=== PATIENT | male | born 1960 | race Caucasian/White ===

== ENCOUNTER 2016-09-18 17:41 | Emergency (ER) | payer MEDICARE, MEDICAID ==
[2015-03-07 14:48] VITALS: BMI 32.6
[~2016-09-18 17:41] MED LIST: ACETAMINOPHEN325 MG PO; ARTANE2 MG PO; ASPIRIN325 MG PO; BENICAR20 MG PO; CARAFATE1 G/10 ML PO; CATAPRES0.1 MG PO; CELEXA10 MG PO; CELEXA20 MG PO; DEPAKOTE ER250 MG PO; DEPAKOTE SPRIN125 MG PO; DEPAKOTE500 MG PO; DILANTIN100 MG PO; DIOVAN80 MG PO; FEXOFENADINE HC60 MG PO; HCTZ25 MG PO; HYDROCODON-ACE1 EAC7 PO; LAMICTAL100 MG PO; PLAVIX75 MG PO; PRAVACHOL20 MG PO; PROTONIX40 MG PO; TOPAMAX100 MG PO; ZOFRAN ODT4 MG/UDTAB PO
[2016-09-18 19:30] LABS: UDS - AMPHET NEGATIVE QUAL (NEGATIVE); UDS - BARB POSITIVE QUAL (NEGATIVE); UDS - BENZO NEGATIVE QUAL (NEGATIVE); UDS - COCAINE NEGATIVE QUAL (NEGATIVE); UDS - METH NEGATIVE QUAL (NEGATIVE); UDS - OPIATE POSITIVE QUAL (NEGATIVE); UDS - PCP NEGATIVE QUAL (NEGATIVE); UDS - THC POSITIVE QUAL (NEGATIVE)
[2016-09-18 19:41] LABS: APPEARANCE CLEAR (CLEAR); COLOR DK YELLOW (YELLOW)
[2016-09-18 19:42] LABS: LEUKOCYTE ESTERASE TRACE (NEGATIVE); NITRITE NEGATIVE (NEGATIVE); SPECIFIC GRAVITY 1.015 (1.005-1.020)
[2016-09-18 19:43] LABS: BILIRUBIN NEGATIVE (NEGATIVE); GLUCOSE NEGATIVE (NEGATIVE); KETONE NEGATIVE (NEGATIVE); PROTEIN 1+ mg/dL (NEGATIVE)
[2016-09-18 19:45] LABS: EPITHELIAL CELLS 0-5 /hpf (0-5); RED CELLS - URINE 0-5 /hpf (0-5); WHITE CELLS - URINE 0-5 /hpf (0-5)
[2016-09-18 19:46] LABS: BACTERIA FEW /hpf (NONE SEEN)
[2016-09-18 19:47] LABS: BASOPHILS 0.3 % (0-2); HEMATOCRIT 40.2 % (42.0-54.0); HEMOGLOBIN 13.7 g/dL (13.5-17.5); IMMATURE GRANULOCYTES 0.3 % (0-5); LYMPHOCYTES 18.2 % (15-50); MCH 31.6 pg (26.0-34.0); MCHC 34.1 g/dL (31.0-37.0); MCV 92.6 fL (80.0-100.0); MEAN PLATELET VOLUME 9.3 fL (7.4-10.4); NEUTROPHILS 69.2 % (40-80); RBC 4.34 10x6/uL (4.20-6.10); RDW 12.6 % (11.5-14.5)
[2016-09-18 19:48] LABS: PLATELET COUNT 177 10x3/uL (130-400)
[2016-09-18 20:03] LABS: ALBUMIN 3.4 g/dL (3.4-5.0); ANION GAP 13.9 mmol/L (8-16); BILIRUBIN - TOTAL 0.32 mg/dL (0.2-1.3); CALCIUM 8.7 mg/dL (8.5-10.1); CARBON DIOXIDE 22.9 mmol/L (21.0-32.0); CREATININE - SERUM 1.1 mg/dL (0.6-1.3); POTASSIUM - SERUM 3.8 mmol/L (3.5-5.1); PROTEIN - SERUM 6.9 g/dL (6.4-8.2); VALPROIC ACID (DEPAKOTE) 77.3 ug/mL (50.0-100.0)
== END 2016-09-18 20:22 | disposition home or self-care (01) ==
LOC: D.ER 17:41
PROVIDERS: Nurse Practitioner Acute Care
DX: Z91.81 History of falling (principal); R25.1 Tremor, unspecified; Z86.73 Personal history of transient ischemic attack (TIA), and cerebral infarction without residual deficits; I10 Essential (primary) hypertension; G40.909 Epilepsy, unspecified, not intractable, without status epilepticus

== ENCOUNTER 2016-10-13 15:22 | Emergency (ER) | payer MEDICARE, MEDICAID ==
[2015-03-07 14:48] VITALS: BMI 32.6
[2016-10-13 16:47] LABS: UDS - AMPHET NEGATIVE QUAL (NEGATIVE); UDS - BARB POSITIVE QUAL (NEGATIVE); UDS - BENZO NEGATIVE QUAL (NEGATIVE); UDS - COCAINE NEGATIVE QUAL (NEGATIVE); UDS - METH NEGATIVE QUAL (NEGATIVE); UDS - OPIATE POSITIVE QUAL (NEGATIVE); UDS - PCP NEGATIVE QUAL (NEGATIVE); UDS - THC NEGATIVE QUAL (NEGATIVE)
[2016-10-13 16:54] LABS: BASOPHILS 0.3 % (0-2); EOSINOPHILS 1.9 % (0-7); HEMATOCRIT 37.8 % (42.0-54.0); HEMOGLOBIN 12.7 g/dL (13.5-17.5); IMMATURE GRANULOCYTES 0.3 % (0-5); LYMPHOCYTES 13.1 % (15-50); MCH 31.3 pg (26.0-34.0); MCHC 33.6 g/dL (31.0-37.0); MCV 93.1 fL (80.0-100.0); MEAN PLATELET VOLUME 8.6 fL (7.4-10.4); MONOCYTES 9.8 % (2-11); NEUTROPHILS 74.6 % (40-80); PLATELET COUNT 201 10x3/uL (130-400); RBC 4.06 10x6/uL (4.20-6.10); RDW 12.8 % (11.5-14.5); WBC 6.4 10x3/uL (4.8-10.8)
[2016-10-13 17:38] LABS: ALBUMIN 3.2 g/dL (3.4-5.0); ALKALINE PHOSPHATASE 103 U/L (46-116); ALT (SGPT) 14 U/L (10-68); BILIRUBIN - TOTAL 0.33 mg/dL (0.2-1.3); CALC OSMOLALITY 277 mosm/kg (275-300); CALCIUM 8.3 mg/dL (8.5-10.1); CARBON DIOXIDE 22.4 mmol/L (21.0-32.0); CHLORIDE - SERUM 105 mmol/L (98-107); CREATININE - SERUM 0.9 mg/dL (0.6-1.3); GLUCOSE 122 mg/dL (74-106); POTASSIUM - SERUM 3.5 mmol/L (3.5-5.1); PROTEIN - SERUM 6.2 g/dL (6.4-8.2); SODIUM 139 mmol/L (136-145); UREA NITROGEN 11 mg/dL (7-18); VALPROIC ACID (DEPAKOTE) 72.6 ug/mL (50.0-100.0); eGFR NON AFRICAN AMERICAN > 90 mL/min (90-120)
[2016-10-13 18:27] LABS: APTT 25.3 SECONDS (22.8-39.4); INR 1.07 (0.85-1.17); PROTIME 13.8 SECONDS (11.6-15.0)
[2016-10-13 21:28] LABS: APPEARANCE CLEAR (CLEAR); BILIRUBIN NEGATIVE (NEGATIVE); COLOR DK YELLOW (YELLOW); GLUCOSE NEGATIVE (NEGATIVE); KETONE NEGATIVE (NEGATIVE); LEUKOCYTE ESTERASE NEGATIVE (NEGATIVE); NITRITE NEGATIVE (NEGATIVE); PROTEIN NEGATIVE (NEGATIVE); SPECIFIC GRAVITY 1.015 (1.005-1.020); UROBILINOGEN NORMAL (NORMAL)
== END 2016-10-13 20:42 | disposition other institution (70) ==
LOC: D.ER 15:22
PROVIDERS: Family Medicine; Physician Assistant
DX: S06.5X0A Traumatic subdural hemorrhage without loss of consciousness, initial encounter (principal); W19.XXXA Unspecified fall, initial encounter; Y93.89 Activity, other specified; Y92.89 Other specified places as the place of occurrence of the external cause; G40.909 Epilepsy, unspecified, not intractable, without status epilepticus; R41.0 Disorientation, unspecified; I10 Essential (primary) hypertension; R41.3 Other amnesia; R42 Dizziness and giddiness; Z87.820 Personal history of traumatic brain injury

== ENCOUNTER 2016-12-06 07:17 | Observation (INO) | payer MEDICARE, MEDICAID ==
[2016-12-06 08:02] LABS: BASOPHILS 0.2 % (0-2); EOSINOPHILS 4.6 % (0-7); HEMATOCRIT 37.6 % (42.0-54.0); HEMOGLOBIN 12.4 g/dL (13.5-17.5); IMMATURE GRANULOCYTES 0.2 % (0-5); MCH 30.5 pg (26.0-34.0); MCV 92.4 fL (80.0-100.0); MEAN PLATELET VOLUME 8.9 fL (7.4-10.4); MONOCYTES 8.4 % (2-11); NEUTROPHILS 70.6 % (40-80); RBC 4.07 10x6/uL (4.20-6.10); RDW 13.1 % (11.5-14.5); WBC 4.8 10x3/uL (4.8-10.8)
[2016-12-06 08:03] LABS: PLATELET COUNT 133 10x3/uL (130-400)
[2016-12-06 08:16] LABS: ALBUMIN 3.5 g/dL (3.4-5.0); ANION GAP 14.8 mmol/L (8-16); BILIRUBIN - TOTAL 0.31 mg/dL (0.2-1.3); CALCIUM 9.1 mg/dL (8.5-10.1); CARBON DIOXIDE 25.1 mmol/L (21.0-32.0); CREATININE - SERUM 1.1 mg/dL (0.6-1.3); POTASSIUM - SERUM 3.9 mmol/L (3.5-5.1); PROTEIN - SERUM 6.7 g/dL (6.4-8.2); VALPROIC ACID (DEPAKOTE) 87.1 ug/mL (50.0-100.0)
--- NOTE | 2016-12-06 12:52 | NUR ---
REPORT RECEIVED FROM NICOLA HENDERSON, ER NURSE.
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
[2016-12-06 13:59] VITALS: BMI 29.3
[2016-12-06] MEDS ORDERED: SEROQUEL25 MG PO (14:11)
[2016-12-06] MEDS ORDERED: ATIVAN0.5 MG PO (14:12)
[2016-12-06] MEDS ORDERED: PEPCID20 MG PO (14:13)
[2016-12-06] MEDS ORDERED: LAMICTAL200 MG PO (14:15)
[2016-12-06] MEDS ORDERED: LOPRESSOR25 MG PO (14:15)
[2016-12-06] MEDS ORDERED: BUMEX2 MG PO (14:16)
[2016-12-06] MEDS ORDERED: K-TAB10 MEQ PO (14:17)
[2016-12-06] MEDS ORDERED: DEPAKOTE250 MG PO (14:19)
[2016-12-06] MEDS ORDERED: TOPAMAX100 MG PO (14:20)
[2016-12-06] MEDS ORDERED: ACETAMINOPHEN325 MG PO (14:22)
[2016-12-06] MEDS ORDERED: IMODIUM 22 MG/10 ML PO (14:29)
[2016-12-06] MEDS ORDERED: ALOE VESTA141 GM TP (14:30)
[2016-12-06] MEDS ORDERED: BACTROBAN CREAM15 GM TOPICAL (14:31)
--- NOTE | 2016-12-06 15:50 | NUR ---
CALLED [facility] AND SPOKE WITH ODETTE MARIN WHO WAS TAKING CARE OF PT AT [facility]. ASKED HIM WHAT KIND OF DIET PT WAS ON AND IT THEY WERE USING PEG TUBE FOR ANYTHING. ODETTE STATED THAT PT WAS ON A REGULAR DIET, AND THAT THE PEG TUBE WAS NOT BEING USED, THAT IT WAS ONLY BEING FLUSHED EVERY SHIFT.
[2016-12-06 16:24] VITALS: BP 119/86
[2016-12-06 20:00] VITALS: BP 104/70
--- NOTE | 2016-12-06 22:23 | NUR ---
INIITAL ROUNDS COMPLETED AT 1920 HRS. PT RESTING WITH EYES CLOSED. RESP EVEN AND REGULAR. ASSESSMENT COMPELTEDA T 2010 HRS. VSS. TREMORS NOTED TO BILAT ARMS. PT ALERT, ORIENTED TO PERSON ONLY. IV TO L HAND WITH NS AT 75CC/HR. IV PATENT. PEG TUBE NOTED. LUNGS DIMINISHED IN BASES BILAT. PT FOLLOWS COMMANDS. EQAL HAND AND FOOT STRENGHT. DR MAHMOOD HERE TO EVAL AT 0 HRS. BED ALARM ON. [facility] CALL[facility]A T 2150 HRS TO VERIFY MEDS. MEDS DISCUSSED WIT WIRE BRUSH OPERATOR ON DUTY. DR MAHMOOD PAGED AT 2210 HRS TO INFORM OF DIFFERENCE FROM LOIST HERE AND AT [facility]. AWAITING CALL BACK. WILL CONTINUE TO MONITOR. SR UP X2, CALL LIGHT WITHIN REACH AND BED ALARM ON.
--- NOTE | 2016-12-06 22:44 | NUR ---
DR. MAHMOOD RETURNED PAGE. INFORMED OF DIFERENCE FROM MED LIST HERE AND FROM [facility] AND LIST RECTIFIED. DR MAHMOOD STATED OK.
[2016-12-07] VITALS: BP 102/63
--- NOTE | 2016-12-07 00:03 | NUR ---
PM MEDS GIVEN WITHOUT DIFFICULTY. WILL CONTINUE TO MONITOR.
--- NOTE | 2016-12-07 00:59 | NUR ---
PT RESTING WITH EYES CLOSED. RESP EVEN AND REGULAR. SR UP X2, CALL LIGHT WITHIN REACH AND BED ALARM ON.
--- NOTE | 2016-12-07 02:00 | NUR ---
PT RESTING WITH EYES CLOSED. RESP DEEP, EVEN AND REGULAR. SR UP X2, CALL LIGHT WITHIN REACH AND BED ALARM ON.
[2016-12-07 04:00] VITALS: BP 90/66
--- NOTE | 2016-12-07 05:02 | NUR ---
PT RESTING WITH EYES CLOSED. RESP EVEN AND REGULAR. PT CLEAN AND DRY AT THIS TIME. WILL CONTINUE TO MONITOR. SR UP X2, CALL LIGHT WITHIN REACH AND BED ALARM ON.
--- NOTE | 2016-12-07 05:56 | NUR ---
VSS THROUGHOUT NIGHT. PT SLEPT WELL SINCE PM MED ADMINISTRATION. NEEDS MET, WILL CONTINUE TO MONITOR.
[2016-12-07 06:43] LABS: BASOPHILS 0.3 % (0-2); EOSINOPHILS 7.8 % (0-7); HEMOGLOBIN 10.7 g/dL (13.5-17.5); IMMATURE GRANULOCYTES 0.6 % (0-5); LYMPHOCYTES 29.4 % (15-50); MCH 30.1 pg (26.0-34.0); MCHC 32.4 g/dL (31.0-37.0); MEAN PLATELET VOLUME 8.8 fL (7.4-10.4); MONOCYTES 10.2 % (2-11); NEUTROPHILS 51.7 % (40-80); PLATELET COUNT 114 10x3/uL (130-400); RBC 3.55 10x6/uL (4.20-6.10); RDW 12.9 % (11.5-14.5)
[2016-12-07 06:46] LABS: WBC 3.4 10x3/uL (4.8-10.8)
[2016-12-07 06:50] LABS: CALC OSMOLALITY 284 mosm/kg (275-300); CALCIUM 8.6 mg/dL (8.5-10.1); CARBON DIOXIDE 23.4 mmol/L (21.0-32.0); CHLORIDE - SERUM 107 mmol/L (98-107); GLUCOSE 85 mg/dL (74-106); POTASSIUM - SERUM 3.8 mmol/L (3.5-5.1); SODIUM 142 mmol/L (136-145); UREA NITROGEN 21 mg/dL (7-18); eGFR NON AFRICAN AMERICAN 82 mL/min (90-120)
--- NOTE | 2016-12-07 07:40 | NUR ---
RECIEVED REPORT ON PATIENT, PATIENT IS RESTING AT THIS TIME, NAD NOTED. AROUSES TO VOICE. PATIENT BED IS LOW AND LOCKED CALL LIGHT IN REACH. PATIENT DENIES ANY NEEDS AT THIS TIME.PATIENT HAS A L HAND IV WITH NS INFUSING AT 75ML/HR. CPOC.
[2016-12-07 08:00] VITALS: BP 121/80
--- NOTE | 2016-12-07 10:00 | NUR ---
PATIENT IS TEARFUL, WANTING TO SPEAK WITH HIS , TRIED TO CALL HIS MARIELOS WITH NUMBER ON CHART, STATES PHONE IS DISCONNECTED, TRIED DAUGHTERS NUMBER ON PATIENT CHART, STATES DISCONNECTED. CALLED AND SPOKE WITH ALYX AT [facility], TO SEE IF THEY HAD A NUMBER I COULD TRY AND THEY HAD THE SSAME NUMBER AND STATED THEY HAVE NOT BEEN ABLE TO GET AHOLD OF FAMILY EITHER. PATIENT NOTIFIED, ASKED IF HE KNEW ANY OTHER NUMBER AND HE STATED NO. [facility] IS SUPPOSE TO TRY TO FIND ANOTHER NUMBER. CPOC
[2016-12-07 11:00] VITALS: BP 126/83
--- NOTE | 2016-12-07 11:53 | NUR ---
PATIENT SITTING UP IN BED EATING LUNCH, DENIES ANY NEEDS. CPOC
[2016-12-07] MEDS ORDERED: PLAVIX75 MG PO (12:24)
[2016-12-07] MEDS ORDERED: CELEXA20 MG PO (12:26)
[2016-12-07] MEDS ORDERED: DEPAKOTE500 MG PO (12:27)
[2016-12-07] MEDS ORDERED: DEPAKOTE SPRIN125 MG PO (12:27)
[2016-12-07] MEDS ORDERED: ARTANE2 MG PO (12:28)
--- NOTE | 2016-12-07 14:00 | NUR ---
REPORT GIVEN TO BOO AT [facility]. DENIES ANY QUESTIONS. WILL GET PATIENT READY FOR TRANSPORT
--- NOTE | 2016-12-07 14:17 | NUR ---
Patient admitted from [facility]. He is discharged to return to facility today. CM spoke with facility, [facility], who stated patient will be returning to a skilled bed. The primary nurse has given report. Transportation will be via [facility]. Chart copy prepared for discharge. PCS form completed.
--- NOTE | 2016-12-07 15:01 | NUR ---
EMS HERE FOR TRANSPORT. DC POAPERWORK SENT WITH EMS.
== END 2016-12-07 15:01 ==
LOC: D.ER 07:17 → D.M2 12:27 → OBSVTIME 12:27 → D.M2 12-07 15:01
PROVIDERS: Emergency Medicine; ADMIT Family Medicine
DX: I69.398 Other sequelae of cerebral infarction (principal); R56.9 Unspecified convulsions; I69.991 Dysphagia following unspecified cerebrovascular disease; R13.10 Dysphagia, unspecified; Z74.01 Bed confinement status; M19.071 Primary osteoarthritis, right ankle and foot; J30.9 Allergic rhinitis, unspecified; E78.5 Hyperlipidemia, unspecified; K21.9 Gastro-esophageal reflux disease without esophagitis; I10 Essential (primary) hypertension; F32.9 Major depressive disorder, single episode, unspecified; Z72.0 Tobacco use

== ENCOUNTER 2016-12-19 13:07 | Emergency (ER) | payer MEDICARE, MEDICAID ==
[~2016-12-19 13:07] MED LIST changes: +ALOE VESTA141 GM TP; +ATIVAN0.5 MG PO; +BACTROBAN CREAM15 GM TOPICAL; +BUMEX2 MG PO; +DEPAKOTE250 MG PO; +IMODIUM 22 MG/10 ML PO; +K-TAB10 MEQ PO; +LAMICTAL200 MG PO; +LOPRESSOR25 MG PO; +PEPCID20 MG PO; +SEROQUEL25 MG PO
[2016-12-19 14:29] LABS: BASOPHILS 0.3 % (0-2); EOSINOPHILS 3.1 % (0-7); HEMATOCRIT 40.9 % (42.0-54.0); HEMOGLOBIN 13.8 g/dL (13.5-17.5); LYMPHOCYTES 16.1 % (15-50); MCH 30.3 pg (26.0-34.0); MCHC 33.7 g/dL (31.0-37.0); MCV 89.9 fL (80.0-100.0); MEAN PLATELET VOLUME 8.9 fL (7.4-10.4); MONOCYTES 10.4 % (2-11); NEUTROPHILS 69.1 % (40-80); PLATELET COUNT 103 10x3/uL (130-400); RBC 4.55 10x6/uL (4.20-6.10); RDW 12.8 % (11.5-14.5); WBC 5.9 10x3/uL (4.8-10.8)
== END 2016-12-19 15:45 | disposition home or self-care (01) ==
LOC: D.ER 13:07
PROVIDERS: Emergency Medicine
DX: S00.83XA Contusion of other part of head, initial encounter (principal); W19.XXXA Unspecified fall, initial encounter; Y93.89 Activity, other specified; Y92.129 Unspecified place in nursing home as the place of occurrence of the external cause; Z86.73 Personal history of transient ischemic attack (TIA), and cerebral infarction without residual deficits; I10 Essential (primary) hypertension

== ENCOUNTER 2017-07-09 20:26 | Emergency (ER) | payer MEDICARE, MEDICAID ==
[2017-07-09 21:00] LABS: BASOPHILS 0.5 % (0-2); EOSINOPHILS 2.2 % (0-7); HEMATOCRIT 36.9 % (42.0-54.0); HEMOGLOBIN 12.7 g/dL (13.5-17.5); IMMATURE GRANULOCYTES 0.3 % (0-5); LYMPHOCYTES 33.1 % (15-50); MCH 29.6 pg (26.0-34.0); MCHC 34.4 g/dL (31.0-37.0); MEAN PLATELET VOLUME 9.1 fL (7.4-10.4); MONOCYTES 9.7 % (2-11); NEUTROPHILS 54.2 % (40-80); RBC 4.29 10x6/uL (4.20-6.10); RDW 12.8 % (11.5-14.5); WBC 6.4 10x3/uL (4.8-10.8)
[2017-07-09 21:06] LABS: PLATELET COUNT 232 10x3/uL (130-400)
[2017-07-09 21:20] LABS: ALBUMIN 3.6 g/dL (3.4-5.0); ALKALINE PHOSPHATASE 144 U/L (46-116); ALT (SGPT) 18 U/L (10-68); BILIRUBIN - TOTAL 0.18 mg/dL (0.2-1.3); CALC OSMOLALITY 279 mosm/kg (275-300); CALCIUM 8.9 mg/dL (8.5-10.1); CHLORIDE - SERUM 107 mmol/L (98-107); GLUCOSE 106 mg/dL (74-106); PHENYTOIN (DILANTIN) 6.7 ug/mL (10.0-20.0); POTASSIUM - SERUM 3.9 mmol/L (3.5-5.1); PROTEIN - SERUM 7.3 g/dL (6.4-8.2); SODIUM 139 mmol/L (136-145); UREA NITROGEN 17 mg/dL (7-18); eGFR NON AFRICAN AMERICAN 82 mL/min (90-120)
[2017-07-09 22:05] LABS: APPEARANCE CLEAR (CLEAR); BILIRUBIN NEGATIVE (NEGATIVE); COLOR YELLOW (YELLOW); GLUCOSE NEGATIVE (NEGATIVE); KETONE NEGATIVE (NEGATIVE); NITRITE NEGATIVE (NEGATIVE); PROTEIN NEGATIVE (NEGATIVE); SPECIFIC GRAVITY 1.005 (1.005-1.020); UROBILINOGEN NORMAL (NORMAL)
[2017-07-09 22:12] LABS: UDS - BARB NEGATIVE QUAL (NEGATIVE); UDS - BENZO NEGATIVE QUAL (NEGATIVE); UDS - COCAINE NEGATIVE QUAL (NEGATIVE); UDS - OPIATE NEGATIVE QUAL (NEGATIVE); UDS - PCP NEGATIVE QUAL (NEGATIVE); UDS - THC NEGATIVE QUAL (NEGATIVE)
[2017-07-09 22:22] LABS: UDS - AMPHET NEGATIVE QUAL (NEGATIVE)
== END 2017-07-10 00:10 | disposition home or self-care (01) ==
LOC: D.ER 20:26
PROVIDERS: Emergency Medicine
DX: G40.209 Localization-related (focal) (partial) symptomatic epilepsy and epileptic syndromes with complex partial seizures, not intractable, without status epilepticus (principal); G40.909 Epilepsy, unspecified, not intractable, without status epilepticus; T50.906A Underdosing of unspecified drugs, medicaments and biological substances, initial encounter; Y92.9 Unspecified place or not applicable; Z86.73 Personal history of transient ischemic attack (TIA), and cerebral infarction without residual deficits; I10 Essential (primary) hypertension

== ENCOUNTER 2017-08-30 00:14 | Emergency (ER) | payer MEDICARE, MEDICAID ==
[~2017-08-30] VITALS: Ht 172.7 cm; Wt 113.6 kg
[2017-08-30 00:17] VITALS: Ht 172.7 cm; Wt 113.6 kg
[2017-08-30] MEDS ORDERED: PRAVASTATIN SOD10 MG PO (00:24)
[2017-08-30] MEDS ORDERED: BUSPIRONE HCL7.5 MG PO (00:24)
[2017-08-30] MEDS ORDERED: DILANTIN100 MG PO (00:25)
[2017-08-30] MEDS ORDERED: DEPAKOTE ER500 MG PO (00:27)
[2017-08-30] MEDS ORDERED: TOPAMAX200 MG PO (00:30)
[2017-08-30] MEDS ORDERED: SINEMET 10/101 UDTAB PO (00:31)
[2017-08-30 01:51] LABS: BASOPHILS 0.3 % (0-2); EOSINOPHILS 4.3 % (0-7); HEMATOCRIT 35.4 % (42.0-54.0); HEMOGLOBIN 12.2 g/dL (13.5-17.5); IMMATURE GRANULOCYTES 0.3 % (0-5); LYMPHOCYTES 39.5 % (15-50); MCH 30.3 pg (26.0-34.0); MCHC 34.5 g/dL (31.0-37.0); MCV 87.8 fL (80.0-100.0); MEAN PLATELET VOLUME 8.8 fL (7.4-10.4); MONOCYTES 6.7 % (2-11); NEUTROPHILS 48.9 % (40-80); PLATELET COUNT 202 10x3/uL (130-400); RBC 4.03 10x6/uL (4.20-6.10); RDW 13.1 % (11.5-14.5)
[2017-08-30 01:58] LABS: ALBUMIN 3.5 g/dL (3.4-5.0); ALKALINE PHOSPHATASE 108 U/L (46-116); ALT (SGPT) 15 U/L (10-68); BILIRUBIN - TOTAL 0.19 mg/dL (0.2-1.3); CALC OSMOLALITY 273 mosm/kg (275-300); CALCIUM 8.5 mg/dL (8.5-10.1); CARBON DIOXIDE 22.8 mmol/L (21.0-32.0); CHLORIDE - SERUM 101 mmol/L (98-107); GLUCOSE 91 mg/dL (74-106); POTASSIUM - SERUM 3.1 mmol/L (3.5-5.1); PROTEIN - SERUM 6.7 g/dL (6.4-8.2); SODIUM 137 mmol/L (136-145); UREA NITROGEN 12 mg/dL (7-18); eGFR NON AFRICAN AMERICAN 82 mL/min (90-120)
[2017-08-30 02:15] LABS: APPEARANCE CLEAR (CLEAR); BILIRUBIN NEGATIVE (NEGATIVE); COLOR YELLOW (YELLOW); GLUCOSE NEGATIVE (NEGATIVE); KETONE NEGATIVE (NEGATIVE); NITRITE NEGATIVE (NEGATIVE); PROTEIN NEGATIVE (NEGATIVE); UROBILINOGEN NORMAL (NORMAL)
[2017-08-30 02:21] LABS: UDS - AMPHET NEGATIVE QUAL (NEGATIVE); UDS - BARB NEGATIVE QUAL (NEGATIVE); UDS - BENZO NEGATIVE QUAL (NEGATIVE); UDS - COCAINE NEGATIVE QUAL (NEGATIVE); UDS - OPIATE NEGATIVE QUAL (NEGATIVE); UDS - PCP NEGATIVE QUAL (NEGATIVE); UDS - THC NEGATIVE QUAL (NEGATIVE)
[2017-08-30 03:03] VITALS: BP 119/85
== END 2017-08-30 03:03 | disposition home or self-care (01) ==
LOC: D.ER 00:14
PROVIDERS: Family Medicine
DX: R56.9 Unspecified convulsions (principal); F17.200 Nicotine dependence, unspecified, uncomplicated

== ENCOUNTER 2018-02-17 12:08 | Emergency (ER) | payer MEDICARE, MEDICAID ==
[~2018-02-17] VITALS: Ht 172.7 cm; Wt 72.6 kg
[~2018-02-17 12:08] MED LIST changes: +BUSPIRONE HCL7.5 MG PO; +DEPAKOTE ER500 MG PO; +PRAVASTATIN SOD10 MG PO; +SINEMET 10/101 UDTAB PO; +TOPAMAX200 MG PO
[2018-02-17 12:10] VITALS: Ht 172.7 cm; Wt 72.6 kg
[2018-02-17] MEDS ORDERED: ATIVAN0.5 MG PO (12:30)
[2018-02-17] MEDS ORDERED: GABAPENTIN100 MG PO (12:30)
[2018-02-17] MEDS ORDERED: HCTZ25 MG PO (12:31)
[2018-02-17] MEDS ORDERED: CATAPRES0.1 MG PO (12:31)
[2018-02-17] MEDS ORDERED: ARTANE2 MG PO (12:32)
[2018-02-17] MEDS ORDERED: REQUIP1 MG PO (12:32)
[2018-02-17 13:13] LABS: BASOPHILS 0.2 % (0-2); EOSINOPHILS 1.9 % (0-7); HEMOGLOBIN 10.8 g/dL (13.5-17.5); IMMATURE GRANULOCYTES 0.4 % (0-5); LYMPHOCYTES 18.8 % (15-50); MCH 26.9 pg (26.0-34.0); MCHC 32.7 g/dL (31.0-37.0); MCV 82.3 fL (80.0-100.0); MEAN PLATELET VOLUME 8.5 fL (7.4-10.4); MONOCYTES 8.2 % (2-11); NEUTROPHILS 70.5 % (40-80); PLATELET COUNT 204 10x3/uL (130-400); RBC 4.01 10x6/uL (4.20-6.10); RDW 13.9 % (11.5-14.5); WBC 5.3 10x3/uL (4.8-10.8)
[2018-02-17 13:51] LABS: ALBUMIN 3.5 g/dL (3.4-5.0); ANION GAP 18.5 mmol/L (8-16); BILIRUBIN - TOTAL 0.2 mg/dL (0.2-1.3); CALCIUM 7.9 mg/dL (8.5-10.1); CARBON DIOXIDE 23.6 mmol/L (21.0-32.0); CREATININE - SERUM 1.3 mg/dL (0.6-1.3); POTASSIUM - SERUM 4.1 mmol/L (3.5-5.1); PROTEIN - SERUM 6.8 g/dL (6.4-8.2); VALPROIC ACID (DEPAKOTE) 40.9 ug/mL (50.0-100.0)
[2018-02-17 18:15] VITALS: BP 102/068
== END 2018-02-17 18:16 | disposition home or self-care (01) ==
LOC: D.ER 12:08
PROVIDERS: Family Medicine
DX: G40.909 Epilepsy, unspecified, not intractable, without status epilepticus (principal); Z86.73 Personal history of transient ischemic attack (TIA), and cerebral infarction without residual deficits; I10 Essential (primary) hypertension

== ENCOUNTER 2018-10-02 22:14 | Observation (INO) | payer MEDICARE, MEDICAID ==
[~2018-10-02] VITALS: Ht 172.7 cm; Wt 100.0 kg
[~2018-10-02 22:14] MED LIST changes: +GABAPENTIN100 MG PO; +REQUIP1 MG PO
--- NOTE | 2018-10-02 22:20 | NUR ---
[facility] CALLED PT WOULD LIKE TO MAKE A REPORT
--- NOTE | 2018-10-02 23:00 | NUR ---
[facility] AT BEDSIDE BADGE # [id number]
--- NOTE | 2018-10-02 23:08 | NUR ---
PT LEFT ED VIA STRETCHER.
[2018-10-03 00:15] VITALS: BP 117/69
--- NOTE | 2018-10-03 00:35 | NUR ---
PT FAMILY AT BEDSIDE.
--- NOTE | 2018-10-03 01:35 | NUR ---
PT RESTING ON BED, NO S/S OF ACUTE DISTRESS NOTED. LIGHTS LOW FOR COMFORT.
[2018-10-03 02:00] LABS: BASOPHILS 0.3 % (0-2); EOSINOPHILS 1.3 % (0-7); HEMATOCRIT 31.8 % (42.0-54.0); HEMOGLOBIN 10.6 g/dL (13.5-17.5); IMMATURE GRANULOCYTES 0.4 % (0-5); LYMPHOCYTES 24.4 % (15-50); MCH 26.6 pg (26.0-34.0); MCHC 33.3 g/dL (31.0-37.0); MCV 79.7 fL (80.0-100.0); MEAN PLATELET VOLUME 8.8 fL (7.4-10.4); MONOCYTES 8.5 % (2-11); NEUTROPHILS 65.1 % (40-80); PLATELET COUNT 239 10x3/uL (130-400); RBC 3.99 10x6/uL (4.20-6.10); RDW 14.6 % (11.5-14.5); WBC 7.1 10x3/uL (4.8-10.8)
[2018-10-03 02:08] LABS: ALBUMIN 3.5 g/dL (3.4-5.0); ANION GAP 13.4 mmol/L (8-16); BILIRUBIN - TOTAL 0.36 mg/dL (0.2-1.3); CALCIUM 8.4 mg/dL (8.5-10.1); CARBON DIOXIDE 25.1 mmol/L (21.0-32.0); CREATININE - SERUM 1.1 mg/dL (0.6-1.3); POTASSIUM - SERUM 3.5 mmol/L (3.5-5.1); PROTEIN - SERUM 6.8 g/dL (6.4-8.2)
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
--- NOTE | 2018-10-03 04:03 | NUR ---
ADMISSION ASSESSMENT COMPLETED. CALL LIGHT IN REACH. PLAN OF CARE INITIATED.
[2018-10-03 04:09] VITALS: BP 111/65; Ht 172.7 cm; Wt 100.0 kg
[2018-10-03 07:14] LABS: APPEARANCE CLEAR (CLEAR); BILIRUBIN NEGATIVE (NEGATIVE); COLOR STRAW (YELLOW); GLUCOSE NEGATIVE (NEGATIVE); KETONE NEGATIVE (NEGATIVE); NITRITE NEGATIVE (NEGATIVE); PROTEIN NEGATIVE (NEGATIVE); SPECIFIC GRAVITY 1.005 (1.005-1.020); UROBILINOGEN NORMAL (NORMAL)
--- NOTE | 2018-10-03 07:25 | NUR ---
INITIAL ROUNDING, PATIENT IS AWAKE AND SEMI FOWLERS IN BED. HE IS REPORTING PAIN OF 8/10 IN THE BACK AND REPORTS STIFFNESS FROM THE WAIST DOWN, REQUESTING A "PILL PLEASE" . CALL LIGHT IN REACH. WHITE BOARD UPDATED.
--- NOTE | 2018-10-03 07:39 | NUR ---
PAGED DR LEYVA R/T PAIN MEDS
--- NOTE | 2018-10-03 07:44 | NUR ---
DR LEYVA CALLED, NEW ORDERS
[2018-10-03 08:30] VITALS: BP 101/60
[2018-10-03] MEDS ORDERED: PEPCID AC20 MG PO (11:06)
[2018-10-03] MEDS ORDERED: BUSPIRONE HCL7.5 MG PO (11:06)
--- NOTE | 2018-10-03 11:10 | NUR ---
THE HOME MED REC WAS RE EVALUATED AND UPDATED ACCORDING TO THE BAG OF MEDICATIONS THE PATIENTS DAUGHTER BROUGHT UP FOR ASSESSMENT. THE FIRST TWO MEDICATIONS ON THE MED REC WERE NOT IN THE BAG, THE PATIENT STATES HE TAKES THEM, THE DAUGHTER IS UNSURE. TRIHEXYPHENIDYLE AND ATIVAN AND CLONIDINE WERE NOT IN THE BAG OF CURRENT MEDICAITONS. METOPROLOL WAS A DIFFERENT MG DOSE, THIS WAS UPDATED. THE DAUGHTER DID STATE SHE THINKS HER DAD IS OVER MEDICATED, AND THUS "TRIPS AND FALLS ALL THE TIME", ALSO STATING, IF HE FORGETS TO TAKE OR IS OUT OF SOME OF THE MEDS HE AMBULATES MUCH BETTER. DAUGHTER WAS TEARFUL DURING THE VISIT. SHE REPORTS SHE IS UNABLE TO CARE FOR HER DAD AT HER HOUSE AND THINKS HE NEEDS TO GO INTO A FACILITY AGAIN. ACT TUTOR INFORMED
[2018-10-03 11:42] VITALS: BP 91/58
--- NOTE | 2018-10-03 12:11 | MORECARE ---
CASE MANAGEMENT DISCHARGE SUMMARY PATIENT: CIRO LOPEZ JR UNIT: [id number] ADM DATE: 10/03/18 AGE: 58 : 62 SEX: M ROOM/BED: D.2135 AUTHOR: MARCIN HOPPER PHYSICIAN: REFERRING PHYSICIAN: MICHEAL LEYVA MD DATE OF SERVICE: 10/03/18 Discharge Plan Patient Name: CIRO LOPEZ [facility] [facility] 1960 Planned Disposition: Anticipated Discharge Date: Discharge Date: Expected LOS: Initial Reviewer: DELMER Initial Review Date: 10/03/2018 Generated: 10/03/18 1:10 pm DCPIA - Discharge Planning Initial Assessment Updated by [email or web address]: Erna Almazan on 10/03/18 12:06 pm * Is the patient Alert and Oriented? Yes * How many steps to enter\exit or inside your home? * PCP STATES SHE IS ON [address] * Pharmacy [facility] * Preadmission Environment Home with Family * ADLs Independent * Other Equipment HAS WALKER, WC AND CANE STATED BY PT * Verbal permission to speak to the caregivers and representatives has been obtained from the patient. N/A * Additional services required to return to the preadmission environment? No * Can the patient safely return to the preadmission environment? Yes * Has this patient been hospitalized within the prior 30 days at any hospital? No Patient Name: CIRO LOPEZ Page 11582 at 1211 All edits/amendments must be made on the electronic document DICTATION DATE: 10/03/18 1210 FAST FOOD ASSISTANT RESTAURANT MANAGER: GABI 10/03/18 1210 RPT#: [id number] DC DATE: STATUS: ADM IN [facility] [address] [place] [address] END OF REPORT
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
[2018-10-03] MEDS ORDERED: CARBIDOPA-LEVO1 EAC2 PO (14:19)
--- NOTE | 2018-10-03 17:16 | NUR ---
PATIENT WAS GIVEN ICE WATER AND ASSESSED FOR PAIN AGAIN, HE AGAIN DECLINES PAIN MED STATING "I TRY NOT TO TAKE DRUGS, IM OK"
[2018-10-03 18:49] VITALS: BP 94/60
[2018-10-03 20:00] VITALS: BP 96/52
--- NOTE | 2018-10-03 20:30 | NUR ---
EVENING ROUNDS COMPLETED. REPORT RECEIVED. PT SITTING UP IN BED WITH EYES OPEN, RR EVEN AND UNLABORED. BED IN LOW POSITION. NO S/S OF DISTRESS NOTED. INTRODUCED SELF TO PT. CALLED PT DAUGHTER PER PT REQUEST TO BRING HIM CLEAN UNDERWEAR. DAUGHTER STATES SHE WILL BRING THEM SOON SHE CAN. CALL LIGHT IN REACH. WILL CTM.
--- NOTE | 2018-10-04 00:12 | NUR ---
ADMINISTERED ORDERED ANALGESIC FOR COMPLAINTS OF PAIN IN BACK. PT STATES PAIN OF A 7 ON A SCALE OF 0-10.
[2018-10-04 00:18] VITALS: BP 98/61
[2018-10-04 04:00] VITALS: BP 116/64
--- NOTE | 2018-10-04 04:35 | NUR ---
I have reviewed this patient and I concur with the Shift Assessment completed by the Licensed Practical Nurse today this shift.
[2018-10-04 05:32] LABS: BASOPHILS 0.5 % (0-2); EOSINOPHILS 2.6 % (0-7); HEMATOCRIT 28.9 % (42.0-54.0); HEMOGLOBIN 9.6 g/dL (13.5-17.5); IMMATURE GRANULOCYTES 0.3 % (0-5); LYMPHOCYTES 46.4 % (15-50); MCH 26.7 pg (26.0-34.0); MCHC 33.2 g/dL (31.0-37.0); MCV 80.5 fL (80.0-100.0); MEAN PLATELET VOLUME 8.8 fL (7.4-10.4); MONOCYTES 8.3 % (2-11); NEUTROPHILS 41.9 % (40-80); PLATELET COUNT 198 10x3/uL (130-400); RBC 3.59 10x6/uL (4.20-6.10); RDW 14.8 % (11.5-14.5)
[2018-10-04 05:42] LABS: WBC 3.8 10x3/uL (4.8-10.8)
[2018-10-04 06:10] LABS: ALBUMIN 3.1 g/dL (3.4-5.0); ALKALINE PHOSPHATASE 78 U/L (46-116); BILIRUBIN - TOTAL 0.26 mg/dL (0.2-1.3); CALC OSMOLALITY 271 mosm/kg (275-300); CALCIUM 8.1 mg/dL (8.5-10.1); CARBON DIOXIDE 22.2 mmol/L (21.0-32.0); CHLORIDE - SERUM 107 mmol/L (98-107); CREATININE - SERUM 1.1 mg/dL (0.6-1.3); GLUCOSE 79 mg/dL (74-106); POTASSIUM - SERUM 3.7 mmol/L (3.5-5.1); PROTEIN - SERUM 6.1 g/dL (6.4-8.2); SODIUM 137 mmol/L (136-145); UREA NITROGEN 9 mg/dL (7-18); eGFR NON AFRICAN AMERICAN 73 mL/min (90-120)
[2018-10-04 06:14] LABS: ALT (SGPT) < 6 U/L (10-68)
--- NOTE | 2018-10-04 07:45 | NUR ---
PT RESTING IN BED. NO SIGNS OF DISTRESS. IV TO RIGHT AC PATENT NO REDNESS OR TENDERNESS. HAS BRUSIES TO BACK. DENIES ANY FUTHER NEED AT THIS TIME. CALL LIGHT IN REACH. BED LOW POSITION. NO FAMILY AT BEDSIDE AT THIS TIME.
[2018-10-04 08:28] VITALS: BP 97/61
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
[2018-10-04 12:58] VITALS: BP 103/70
--- NOTE | 2018-10-04 13:23 | NUR ---
I have reviewed this patient and I concur with the Shift Assessment completed by the Licensed Practical Nurse today this shift.
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
--- NOTE | 2018-10-04 17:02 | NUR ---
HAD DISCHARGE PAPERWORK IN HAND PT STATED HE COULD NOT GET A HOLD OF HIS RIDE. WENT TO SPEAK WITH [employer]NAG[employer] FOR A DIFFERENT NUMBER TO PT DAUGHTER JANET. FINALLY GO A HOLD OF JANET SHE STATED SHE WAS UNABLE TO CARE FOR PT AT HOME AND HE HAD NO OTHER PERSON TO TAKE CARE OF HIM. SHE STATED TO PLACE PT IN [facility]. PT DOESNT REALLY WANT TO GO INTO [facility] BUT CAME TO AN AGREEMENT WITH [facility] TO WHICH [facility] HE WOULD WANT TO GO INTO. PT VISIBLY CRYING STATING I KNEW THEY WOULD TRY TO PLACE HIM INTO A [facility] IS CURRENTLY WORKING ON PLACEMENT FOR THE PT.
--- NOTE | 2018-10-04 19:10 | NUR ---
EVENING ROUNDS MADE. PT SITTING UP IN BED. VSS. DENIES ANY NEEDS AT THIS TIME. WILL CONT POC.
--- NOTE | 2018-10-04 20:20 | NUR ---
ASSISTED PT TO THE RESTROOM, PT HAD A BM. ASSISTED PT BACK TO BED. CL IN REACH, BED IN LOWEST POSITION. PT DENIES ANY FURTHER NEEDS AT THIS TIME. WILL CONT WITH POC.
[2018-10-04 20:43] VITALS: BP 105/69
[2018-10-05 00:04] VITALS: BP 107/67
[2018-10-05 04:12] VITALS: BP 98/56
--- NOTE | 2018-10-05 05:40 | NUR ---
PT IN BED. NO SIGNS OF DISTRESS. CL IN REACH, BED IN LOWEST POSITION. PT DENIES ANY NEEDS AT THIS TIME WILL CONT WITH POC.
[2018-10-05 08:42] VITALS: BP 106/70
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
--- NOTE | 2018-10-05 13:36 | NUR ---
I ASKED THE PATIENT IF HE NEEDED THE "[facility]" STOP SMOKING REFERRAL. PATIENT TELLS ME THAT HE DOES NOT SMOKE.
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
--- NOTE | 2018-10-05 14:40 | NUR ---
RESTS IN BED WITH CALL LIGHT IN REACH. IV INFUSING NS. STATES HE DOES NOT WANT TO GO TO [place]. LINNEAAGER INFORMED.
--- NOTE | 2018-10-05 15:26 | NUR ---
PT 20G IV DC'D. WITH CATHETER TIP IN PLACE. DISCHARGED INSTRUCTIONS WENT OVER AND GIVEN TO PT. XENA MARTINEZ PROVIDED PT WITH BUS PASS TO GET HOME. PT WHEELED OUT TO ER PARKING LOT. I WALKED WITH HIM 1/[address] AND HIS [id number] WAS IN THE STAIRWELL TALKING ON THE PHONE. HE CAME OUT AND ASKED HIM TO COME WAIT WITH HIM UNTIL PT'S DUAGHTER ARRIVED. THE PT AND [id number] ARE WAITING IN ER LOBBY. VITALS STABLE. PT DENIES ANY FURTHER NEEDS AT THIS TIME. WILL CONTINUE TO MONIT0
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
== END 2018-10-05 16:22 | disposition home or self-care (01) ==
LOC: D.ER 22:14 → OBSVTIME 10-03 02:21 → D.M2 10-03 02:21
PROVIDERS: Family Medicine; ADMIT Internal Medicine Nephrology; ATTEND Internal Medicine Nephrology
DX: S30.0XXA Contusion of lower back and pelvis, initial encounter (principal); Y09 Assault by unspecified means; D50.9 Iron deficiency anemia, unspecified; I10 Essential (primary) hypertension; E78.5 Hyperlipidemia, unspecified; G40.909 Epilepsy, unspecified, not intractable, without status epilepticus; F32.9 Major depressive disorder, single episode, unspecified; G47.33 Obstructive sleep apnea (adult) (pediatric); G89.29 Other chronic pain

== ENCOUNTER 2019-03-24 08:29 | Emergency (ER) | payer MEDICARE, MEDICAID ==
[~2019-03-24] VITALS: Ht 172.7 cm; Wt 107.9 kg
[~2019-03-24 08:29] MED LIST changes: +CARBIDOPA-LEVO1 EAC2 PO; +LAMICTAL200 M1 PO; -LAMICTAL200 MG PO; +PEPCID AC20 MG PO
[2019-03-24 08:38] LABS: BASOPHILS 0.4 % (0-2); EOSINOPHILS 3.5 % (0-7); HEMATOCRIT 30.3 % (42.0-54.0); IMMATURE GRANULOCYTES 0.2 % (0-5); LYMPHOCYTES 22.5 % (15-50); MCH 21.4 pg (26.0-34.0); MCHC 29.7 g/dL (31.0-37.0); MONOCYTES 7.7 % (2-11); NEUTROPHILS 65.7 % (40-80); RBC 4.21 10x6/uL (4.20-6.10); RDW 18.8 % (11.5-14.5); WBC 4.8 10x3/uL (4.8-10.8)
[2019-03-24 08:44] VITALS: Ht 172.7 cm; Wt 107.9 kg
[2019-03-24 08:47] LABS: PLATELET COUNT 261 10x3/uL (130-400)
[2019-03-24 08:48] LABS: CALC OSMOLALITY 286 mosm/kg (275-300); CALCIUM 8.1 mg/dL (8.5-10.1); CARBON DIOXIDE 21.8 mmol/L (21.0-32.0); CHLORIDE - SERUM 110 mmol/L (98-107); CREATININE - SERUM 1.1 mg/dL (0.6-1.3); GLUCOSE 100 mg/dL (74-106); POTASSIUM - SERUM 4.1 mmol/L (3.5-5.1); SODIUM 143 mmol/L (136-145); UREA NITROGEN 19 mg/dL (7-18); eGFR NON AFRICAN AMERICAN 73 mL/min (90-120)
[2019-03-24 08:57] LABS: APTT 28.1 SECONDS (22.8-39.4); INR 1.07 (0.85-1.17); PROTIME 13.8 SECONDS (11.6-15.0)
[2019-03-24] MEDS ORDERED: KEPPRA500 MG PO (08:57)
[2019-03-24] MEDS ORDERED: IPRAT-ALBUT 0.5-3 ML UPD (08:58)
[2019-03-24] MEDS ORDERED: MELATONIN 3 MG1 TAB PO (08:59)
[2019-03-24] MEDS ORDERED: ATIVAN0.5 MG PO (09:03)
[2019-03-24 09:09] LABS: ALBUMIN 3.8 g/dL (3.4-5.0); ALKALINE PHOSPHATASE 102 U/L (46-116); ALT (SGPT) 27 U/L (10-68); BILIRUBIN - TOTAL 0.26 mg/dL (0.2-1.3); CKMB 0.8 U/L (0.0-3.6); CREATINE KINASE 178 UL (21-232); MAGNESIUM - SERUM 1.9 mg/dL (1.8-2.4); PROTEIN - SERUM 6.8 g/dL (6.4-8.2); THYROID STIMULATING HORMONE 1.64 uIU/mL (0.36-3.74); TROPONIN-I < 0.017 ng/mL (0.000-0.060)
[2019-03-24] MEDS ORDERED: ZOFRAN4 MG PO (09:14)
[2019-03-24] MEDS ORDERED: NITROSTAT0.4 MG SL (09:16)
[2019-03-24 09:47] LABS: % SATURATION 6 % (15-55); IRON 29 ug/dl (35-150); TOTAL IRON BIND CAPACITY 437 ug/dl (260-445); UNSAT IRON BIND CAPACITY 408 ug/dl (150-375)
[2019-03-24 10:17] LABS: APPEARANCE CLEAR (CLEAR); BILIRUBIN NEGATIVE (NEGATIVE); COLOR YELLOW (YELLOW); GLUCOSE NEGATIVE (NEGATIVE); KETONE NEGATIVE (NEGATIVE); NITRITE NEGATIVE (NEGATIVE); PROTEIN NEGATIVE (NEGATIVE); SPECIFIC GRAVITY 1.005 (1.005-1.020); UROBILINOGEN NORMAL (NORMAL)
[2019-03-24 12:08] VITALS: BP 136/75
== END 2019-03-24 12:29 | disposition other institution (70) ==
LOC: D.ER 08:29
PROVIDERS: Emergency Medicine
DX: G83.84 Todd's paralysis (postepileptic) (principal); G81.91 Hemiplegia, unspecified affecting right dominant side; D50.9 Iron deficiency anemia, unspecified; Z86.73 Personal history of transient ischemic attack (TIA), and cerebral infarction without residual deficits; I10 Essential (primary) hypertension; I20.9 Angina pectoris, unspecified

== ENCOUNTER 2019-10-24 14:17 | Inpatient (IN) | payer MEDICARE, MEDICAID ==
[~2019-10-24] VITALS: Ht 172.7 cm; Wt 106.4 kg
[~2019-10-24 14:17] MED LIST changes: +IPRAT-ALBUT 0.5-3 ML UPD; +KEPPRA500 MG PO; +MELATONIN 3 MG1 TAB PO; +NITROSTAT0.4 MG SL; +ZOFRAN4 MG PO
[2019-10-24 15:37] LABS: BASOPHILS 0.3 % (0-2); EOSINOPHILS 1.4 % (0-7); HEMATOCRIT 36.8 % (42.0-54.0); HEMOGLOBIN 12.1 g/dL (13.5-17.5); IMMATURE GRANULOCYTES 0.3 % (0-5); LYMPHOCYTES 11.4 % (15-50); MCH 26.7 pg (26.0-34.0); MCHC 32.9 g/dL (31.0-37.0); MCV 81.1 fL (80.0-100.0); MEAN PLATELET VOLUME 9.2 fL (7.4-10.4); MONOCYTES 9.1 % (2-11); NEUTROPHILS 77.5 % (40-80); PLATELET COUNT 249 10x3/uL (130-400); RBC 4.54 10x6/uL (4.20-6.10); RDW 13.8 % (11.5-14.5); WBC 7.6 10x3/uL (4.8-10.8)
[2019-10-24 15:46] LABS: CALC OSMOLALITY 281 mosm/kg (275-300); CARBON DIOXIDE 22.9 mmol/L (21.0-32.0); CHLORIDE - SERUM 107 mmol/L (98-107); GLUCOSE 125 mg/dL (74-106); POTASSIUM - SERUM 3.5 mmol/L (3.5-5.1); SODIUM 141 mmol/L (136-145); UREA NITROGEN 13 mg/dL (7-18); eGFR NON AFRICAN AMERICAN 81 mL/min (90-120)
[2019-10-24 15:48] LABS: APTT 30.4 SECONDS (22.8-39.4)
[2019-10-24 15:52] LABS: INR 1.12 (0.85-1.17); PROTIME 14.4 SECONDS (11.6-15.0)
--- NOTE | 2019-10-24 15:53 | NUR ---
COVID TEST TO LAB
[2019-10-24 16:02] LABS: ALBUMIN 3.7 g/dL (3.4-5.0); ALKALINE PHOSPHATASE 118 U/L (30-120); ALT (SGPT) 15 U/L (10-68); BILIRUBIN - TOTAL 0.62 mg/dL (0.2-1.3); CKMB 0.5 U/L (0.0-3.6); CREATINE KINASE 70 UL (21-232); PROTEIN - SERUM 7.5 g/dL (6.4-8.2)
[2019-10-24 16:05] LABS: TROPONIN-I < 0.017 ng/mL (0.000-0.060)
[2019-10-24 16:31] LABS: BILIRUBIN NEGATIVE (NEGATIVE); GLUCOSE NEGATIVE (NEGATIVE); KETONE NEGATIVE (NEGATIVE); NITRITE NEGATIVE (NEGATIVE); UROBILINOGEN 4 mg/dL (NORMAL)
[2019-10-24 17:11] VITALS: BP 119/67
--- NOTE | 2019-10-24 18:00 | NUR ---
REGULAR MEAL TRAY PROVIDED.
--- NOTE | 2019-10-24 18:22 | NUR ---
PT ATE 25% OF MEAL TRAY.
--- NOTE | 2019-10-24 19:07 | NUR ---
REPORT GIVEN TO SANTIAGO ARCEO
[2019-10-24 20:58] LABS: CKMB 0.6 U/L (0.0-3.6); CREATINE KINASE 66 UL (21-232)
[2019-10-24 21:01] LABS: TROPONIN-I < 0.017 ng/mL (0.000-0.060)
--- NOTE | 2019-10-24 21:30 | NUR ---
PT TO FLOOR VIA WHEEL CHAIR, ON ROOM AIR. NO SIGNS OF DISTRESS NOTED. PT DENIES ANY PAIN. REQUEST FOR COFFEE, PROVIDED. PT DENIES ANY OTHER NEEDS AT THIS TIME. CL IN REACH, BED IN LOWEST POSITION.
[2019-10-24 23:01] VITALS: Ht 172.7 cm; Wt 106.4 kg
[2019-10-25 04:00] VITALS: BP 112/60
[2019-10-25 08:16] VITALS: BP 137/72; BP 179/92
[2019-10-25 10:59] LABS: BASOPHILS 0.2 % (0-2); EOSINOPHILS 0.7 % (0-7); HEMATOCRIT 35.7 % (42.0-54.0); HEMOGLOBIN 11.5 g/dL (13.5-17.5); IMMATURE GRANULOCYTES 0.2 % (0-5); LYMPHOCYTES 8.1 % (15-50); MCH 26.2 pg (26.0-34.0); MCHC 32.2 g/dL (31.0-37.0); MCV 81.3 fL (80.0-100.0); MEAN PLATELET VOLUME 9.3 fL (7.4-10.4); MONOCYTES 3.9 % (2-11); NEUTROPHILS 86.9 % (40-80); PLATELET COUNT 235 10x3/uL (130-400); RBC 4.39 10x6/uL (4.20-6.10); RDW 13.7 % (11.5-14.5)
[2019-10-25 11:01] LABS: WBC 5.6 10x3/uL (4.8-10.8)
[2019-10-25 11:26] LABS: CALC OSMOLALITY 279 mosm/kg (275-300); CALCIUM 8.5 mg/dL (8.5-10.1); CARBON DIOXIDE 21.6 mmol/L (21.0-32.0); CHLORIDE - SERUM 108 mmol/L (98-107); CHOL - HDL RATIO 4.9 ratio (2.3-4.9); CHOLESTEROL, TOTAL 186 mg/dL (0-200); CKMB 0.4 U/L (0.0-3.6); CREATINE KINASE 61 UL (21-232); CREATININE - SERUM 0.9 mg/dL (0.6-1.3); GLUCOSE 130 mg/dL (74-106); HDL CHOLESTEROL 38 mg/dL (32-96); LDL CHOLESTEROL 130 mg/dL (0-100); LDL-HDL RATIO 3.4 ratio (1.5-3.5); MAGNESIUM - SERUM 1.9 mg/dL (1.8-2.4); PHOSPHOROUS 2.5 mg/dL (2.5-4.9); POTASSIUM - SERUM 3.7 mmol/L (3.5-5.1); SODIUM 140 mmol/L (136-145); THYROID STIMULATING HORMONE 0.82 uIU/mL (0.36-3.74); TRIGLYCERIDE 92 mg/dL (30-200); UREA NITROGEN 11 mg/dL (7-18); eGFR NON AFRICAN AMERICAN > 90 mL/min (90-120)
[2019-10-25 11:27] LABS: TROPONIN-I < 0.017 ng/mL (0.000-0.060)
[2019-10-25 12:41] VITALS: BP 137/71
[2019-10-25 20:00] VITALS: BP 109/62
--- NOTE | 2019-10-25 22:30 | NUR ---
PATIENT WAS GOING TO BE TRANSFERED TO ROOM 2211, BUT IT WAS FOUND THAT HE WAS POSITIVE FOR THE FLU OUTPATIENT. WE WILL PUT HIM BACK ON ISOLATION.
[2019-10-26 04:00] VITALS: BP 125/69
[2019-10-26 06:42] LABS: CALC OSMOLALITY 278 mosm/kg (275-300); CALCIUM 8.2 mg/dL (8.5-10.1); CARBON DIOXIDE 18.5 mmol/L (21.0-32.0); CHLORIDE - SERUM 110 mmol/L (98-107); CREATININE - SERUM 0.9 mg/dL (0.6-1.3); GLUCOSE 131 mg/dL (74-106); POTASSIUM - SERUM 4.1 mmol/L (3.5-5.1); SODIUM 139 mmol/L (136-145); UREA NITROGEN 11 mg/dL (7-18); eGFR NON AFRICAN AMERICAN > 90 mL/min (90-120)
[2019-10-26 07:55] LABS: BASOPHILS 0 % (0-2); EOSINOPHILS 0.1 % (0-7); HEMATOCRIT 32.6 % (42.0-54.0); HEMOGLOBIN 10.5 g/dL (13.5-17.5); IMMATURE GRANULOCYTES 0.3 % (0-5); LYMPHOCYTES 9.3 % (15-50); MCH 26.2 pg (26.0-34.0); MCHC 32.2 g/dL (31.0-37.0); MCV 81.3 fL (80.0-100.0); MEAN PLATELET VOLUME 9.3 fL (7.4-10.4); MONOCYTES 5.9 % (2-11); NEUTROPHILS 84.4 % (40-80); PLATELET COUNT 273 10x3/uL (130-400); RBC 4.01 10x6/uL (4.20-6.10); RDW 13.6 % (11.5-14.5); WBC 6.8 10x3/uL (4.8-10.8)
[2019-10-26 08:28] VITALS: BP 136/68
[2019-10-26 16:13] VITALS: BP 117/57
--- NOTE | 2019-10-26 19:50 | NUR ---
PATIENT IS RESTING COMFORTABLY IN BED. HE IS ALERT AND ORIENTED. HE IS ON ROOM AIR. THEY TOOK HIM OFF OF ISOLATION, BECAUSE HE DOES NOT HAVE THE FLU. WE WILL CONTINUE TO MONITOR HIS RESPIRATORY STATUS.
[2019-10-26 20:00] VITALS: BP 126/71
[2019-10-27 04:00] VITALS: BP 134/72
[2019-10-27 06:49] LABS: CALC OSMOLALITY 280 mosm/kg (275-300); CARBON DIOXIDE 19.4 mmol/L (21.0-32.0); CHLORIDE - SERUM 111 mmol/L (98-107); GLUCOSE 94 mg/dL (74-106); PHOSPHOROUS 2.6 mg/dL (2.5-4.9); POTASSIUM - SERUM 3.8 mmol/L (3.5-5.1); SODIUM 141 mmol/L (136-145); UREA NITROGEN 13 mg/dL (7-18); eGFR NON AFRICAN AMERICAN 81 mL/min (90-120)
[2019-10-27 10:57] LABS: BASOPHILS 0.2 % (0-2); EOSINOPHILS 2.5 % (0-7); HEMATOCRIT 34.2 % (42.0-54.0); IMMATURE GRANULOCYTES 0.6 % (0-5); LYMPHOCYTES 24.6 % (15-50); MCH 26.6 pg (26.0-34.0); MCHC 32.2 g/dL (31.0-37.0); MCV 82.8 fL (80.0-100.0); MEAN PLATELET VOLUME 9.1 fL (7.4-10.4); MONOCYTES 4.5 % (2-11); NEUTROPHILS 67.6 % (40-80); PLATELET COUNT 279 10x3/uL (130-400); RBC 4.13 10x6/uL (4.20-6.10); RDW 14.1 % (11.5-14.5); WBC 6.4 10x3/uL (4.8-10.8)
[2019-10-27] MEDS ORDERED: FEXOFENADINE HC60 MG PO (14:19)
[2019-10-27] MEDS ORDERED: LOPRESSOR25 MG PO (14:19)
[2019-10-27] MEDS ORDERED: NICODERM CQ1 EAC3 TRANSDERM (14:19)
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
--- NOTE | 2019-10-28 08:19 | EC ---
PATIENT:CIRO LOPEZ JR DATE OF SERVICE: 10/24/19 SEX: M MEDICAL RECORD: [id number] DATE OF : [birth year] LOCATION:D.M2 D.213 AGE OF PATIENT: 59 ADMISSION DATE: 10/24/19 REFERRING PHYSICIAN: INTERPRETING PHYSICIAN: CAROLINE VASQUEZ MD ECHOCARDIOGRAM REPORT ECHO CHARGES 4 ECHO COMPLETE Date: 10/25/19 CLINICAL DIAGNOSIS: CP ECHOCARDIOGRAPHIC MEASUREMENTS (adult normal given) AC root (d.<3.7cm) 2.8 cm LV Septum d (<1.2 cm> 1.0 cm Valve Excursion 2.0 cm LV Septum (systole) 1.8 cm Left Atria (s.<4.0cm> 4.3 cm LVPW d(<1.2cm) 0.8 cm RV (d.<2.3cm) 3.8 cm LVPW (sytole) 1.0 cm LV diastole(<5.6CM) 5.8 cm MV E-F(>70mm/sec) cm LV systole 3.6 cm LVOT Diameter 1.7 cm MV exc.(>10mm) cm Est.ejection fraction (50-75%) % DOPPLER: LVIT cm/sec A 86 cm/sec E 54 cm/sec LA cm/sec RVSP 15.3 mmHg LVOT 66 cm/sec AOP1/2T m/s Asc. Ao 113 cm/sec RVOT 57 cm/sec RA cm/sec PA 82 cm/sec AV Gradient Peak 5.1 mmHg AV Mean 2.5 mmHg AV Area 1.5 cm MV Gradient Peak 3.5 mmHg MV Mean 2.1 mmHg MV Area cm COMMENTS: Hand Brim Ironer: Lulu [facility] Consumer Electronic Retail Specialist: 3 Dr. Hidalgo TAPE# PACS Pericardial Effusion N DATE OF SERVICE: Adequate 2D, color flow imaging, spectral Doppler, and M-Mode. No LVH. LV internal dimensions are normal. Wall motion is normal. EF is greater than or equal to 55%. Aortic valve is tricuspid. No evidence of stenosis by Doppler interrogation. Left atrium is dilated at 4.3 cm. Mitral valve shows no prolapse. Trivial MR. Right-sided chambers are grossly normal. Mild TR. ECHOCARDIOGRAM REPORT [id number] CIRO LOPEZ JR TRANSINT:[id number] Voice Confirmation ID: [id number] DOCUMENT ID: [id number] CAROLINE VASQUEZ MD at 0819 CC: [id number] DICTATION DATE: 10/25/19 170 DIE STAMPER: 10/25/19 2315 DIS IN 10/27/19 [place] [id number] [place] [id number]
== END 2019-10-27 15:55 | disposition home or self-care (01) | DRG 101 ==
LOC: D.ER 14:17 → D.M2 17:19
PROVIDERS: Family Medicine; ADMIT Family Medicine Adult Medicine; ATTEND Family Medicine Adult Medicine
DX: G40.909 Epilepsy, unspecified, not intractable, without status epilepticus (principal); D64.9 Anemia, unspecified; F17.200 Nicotine dependence, unspecified, uncomplicated; K21.9 Gastro-esophageal reflux disease without esophagitis; I10 Essential (primary) hypertension; E78.5 Hyperlipidemia, unspecified; J44.9 Chronic obstructive pulmonary disease, unspecified; F41.8 Other specified anxiety disorders; M19.90 Unspecified osteoarthritis, unspecified site; G47.33 Obstructive sleep apnea (adult) (pediatric); Z86.73 Personal history of transient ischemic attack (TIA), and cerebral infarction without residual deficits

== ENCOUNTER 2019-11-12 13:55 | Emergency (ER) | payer MEDICARE, MEDICAID ==
[~2019-11-12] VITALS: Ht 172.7 cm; Wt 109.1 kg
[~2019-11-12 13:55] MED LIST changes: +NICODERM CQ1 EAC3 TRANSDERM
[2019-11-12 13:57] VITALS: Ht 172.7 cm; Wt 109.1 kg
[2019-11-12 14:17] LABS: BASOPHILS 0.2 % (0-2); EOSINOPHILS 2.1 % (0-7); HEMATOCRIT 45.6 % (42.0-54.0); IMMATURE GRANULOCYTES 0.4 % (0-5); LYMPHOCYTES 17.5 % (15-50); MCH 26.7 pg (26.0-34.0); MCHC 32.9 g/dL (31.0-37.0); MCV 81.1 fL (80.0-100.0); MEAN PLATELET VOLUME 9.5 fL (7.4-10.4); MONOCYTES 6.4 % (2-11); NEUTROPHILS 73.4 % (40-80); PLATELET COUNT 229 10x3/uL (130-400); RBC 5.62 10x6/uL (4.20-6.10); RDW 14.2 % (11.5-14.5); WBC 8.2 10x3/uL (4.8-10.8)
[2019-11-12 14:29] LABS: ANION GAP 19.4 mmol/L (8-16); CALCIUM 9.4 mg/dL (8.5-10.1); CARBON DIOXIDE 21.5 mmol/L (21.0-32.0); CREATININE - SERUM 1.1 mg/dL (0.6-1.3); POTASSIUM - SERUM 3.9 mmol/L (3.5-5.1)
[2019-11-12 14:35] LABS: ALBUMIN 4.6 g/dL (3.4-5.0); BILIRUBIN - TOTAL 0.33 mg/dL (0.2-1.3); PROTEIN - SERUM 8.5 g/dL (6.4-8.2)
[2019-11-12 14:50] LABS: BILIRUBIN NEGATIVE (NEGATIVE); KETONE NEGATIVE (NEGATIVE); NITRITE NEGATIVE (NEGATIVE); UROBILINOGEN NORMAL (NORMAL)
[2019-11-12 14:56] LABS: BACTERIA FEW /hpf (NONE SEEN); EPITHELIAL CELLS NSEEN /hpf (0-5); RED CELLS - URINE NONE SEEN /hpf (0-5); WHITE CELLS - URINE 0-5 /hpf (0-5)
[2019-11-12] MEDS ORDERED: FLAGYL500 MG PO (16:13)
[2019-11-12] MEDS ORDERED: LEVSIN/ANASP0.125 MG PO (16:13)
[2019-11-12] MEDS ORDERED: FLORASTOR250 MG PO (16:13)
[2019-11-12] MEDS ORDERED: LEVOFLOXACIN500 MG PO (16:13)
[2019-11-12 17:57] VITALS: BP 142/92
== END 2019-11-12 17:58 | disposition home or self-care (01) ==
LOC: D.ER 13:55
PROVIDERS: Family Medicine
DX: R07.89 Other chest pain (principal); K52.9 Noninfective gastroenteritis and colitis, unspecified; R10.9 Unspecified abdominal pain; Z86.73 Personal history of transient ischemic attack (TIA), and cerebral infarction without residual deficits; I10 Essential (primary) hypertension; E78.5 Hyperlipidemia, unspecified; J44.9 Chronic obstructive pulmonary disease, unspecified; K21.9 Gastro-esophageal reflux disease without esophagitis